=== PATIENT | female | born 1990 | race Asian ===

== ENCOUNTER 2019-09-03 14:20 | Emergency (ER) | payer BC ==
[~2019-09-03] VITALS: Ht 152.4 cm; Wt 68.0 kg
[2019-09-03] MEDS: ONDANSETRON PF 4 MG/2 ML VIAL. IVP ONE ×2 (15:54→17:30)
[2019-09-03] MEDS: FAMOTIDINE 20 MG/2 ML VIAL IVP ONE (15:54)
[2019-09-03] MEDS: IV NORMAL SALINE 1000ML BAG 1,000 ML IV ONE (15:56)
[2019-09-03 15:58] LABS: BASO % 0 % (0-3); EOS # 0.1 x10^3/uL (0.0-0.7); EOS % 1 % (0-3); HEMATOCRIT 38.6 % (36.0-47.0); HEMOGLOBIN 12.9 g/dL (12.0-15.5); LYMPH # 1.4 x10^3/uL (1.0-4.8); LYMPH % 9 % (24-48); MEAN CORPUSCULAR HEMOGLOBIN 29 pg (25-35); MEAN CORPUSCULAR HGB CONC 34 g/dL (31-37); MEAN CORPUSCULAR VOLUME 87 fL (79-100); MONO # 0.4 x10^3/uL (0.0-1.1); MONO % 3 % (0-9); NEUT # 12.6 x10^3/uL (1.8-7.7); NEUT % 87 % (31-73); PLATELET COUNT 207 x10^3/uL (140-400); RED BLOOD COUNT 4.45 x10^6/uL (3.50-5.40); RED CELL DISTRIBUTION WIDTH 12.2 % (11.5-14.5); WHITE BLOOD COUNT 14.5 x10^3/uL (4.0-11.0)
[2019-09-03 16:08] LABS: CALCIUM 8.5 mg/dL (8.5-10.1); CREATININE 0.5 mg/dL (0.6-1.0); POTASSIUM 3.5 mmol/L (3.5-5.1)
[2019-09-03 16:14] LABS: ALBUMIN 2.4 g/dL (3.4-5.0); ALBUMIN/GLOBULIN RATIO 0.5 (1.0-1.7); MAGNESIUM 1.8 mg/dL (1.8-2.4); TOTAL BILIRUBIN 0.5 mg/dL (0.2-1.0); TOTAL PROTEIN 6.8 g/dL (6.4-8.2)
[2019-09-03 16:34] LABS: % ATYL 3 % (0-0); % BANDS 11 % (0-9); % LYMPHS 5 % (24-48); % MONOS 3 % (0-10); % SEGS 78 % (35-66)
[2019-09-03 16:35] LABS: PLT ESTIMATE ADEQUATE (ADEQUATE)
[2019-09-03 17:04] LABS: BILIRUBIN,URINE NEGATIVE (NEG); CLARITY,URINE CLOUDY; COLOR,URINE AMBER; NITRITE,URINE NEGATIVE (NEG); PH,URINE 5.5; PROTEIN,URINE 30 mg/dL (NEG-TRACE)
[2019-09-03 17:10] LABS: BACTERIA,URINE FEW /HPF (0-FEW); RBC,URINE >40 /HPF (0-2); SQUAMOUS EPITHELIAL CELL,UR FEW /LPF; WBC,URINE >40 /HPF (0-4)
[2019-09-03 17:12] LABS: AMPHETAMINE/METHAMPHETAMINE NEG (NEG); BARBITURATES NEG (NEG); BENZODIAZEPINES NEG (NEG); CANNABINOIDS NEG (NEG); COCAINE NEG (NEG); METHADONE NEG (NEG); OPIATES NEG (NEG); PHENCYCLIDINE NEG (NEG)
--- NOTE | 2019-09-03 17:13 | RAD ---
CT abdomen pelvis without contrast dated 09/03/2019. No comparison available. Clinical data indication: Abdominal pain. Status post vaginal delivery on Sunday. TECHNIQUE: Contiguous axial imaging the M pelvis performed without the administration of IV or oral contrast. One or more of the following individualized dose reduction techniques were utilized for this examination: 1. Automated exposure control 2. Adjustment of the mA and/or kV according to patient size 3. Use of iterative reconstruction technique. FINDINGS: Limited images of lung bases are clear. Heart size is upper limits of normal. No pleural or pericardial effusion. Solid abdominal viscera not well evaluated in the absence of contrast material. No apparent attenuation abnormality of the liver or spleen. Pancreas, adrenal glands unremarkable. Gallbladder unremarkable. There is a 8 mm calcific stone at the mid to lower pole right kidney. No apparent ureteral stone or hydronephrosis. Unopacified GI tract is difficult to evaluate in the absence of contrast material. There appears to be circumferential wall thickening of small bowel loops distally in the abdomen and pelvis. There is also possible mild wall thickening of the ascending colon. Mild inflammatory stranding in the mesentery. No significant ascites or pneumoperitoneum. Abdominal aorta normal in caliber. There is a small ventral abdominal wall protrusion at the umbilicus which contains bowel. The appendix is not clearly identified. Images of pelvis show enlarged uterus. There is some hyperdensity within the endometrial canal. Trace amount of free pelvic fluid. No pelvic lymphadenopathy. The urinary bladder is collapsed and not well evaluated. Ovaries are not well evaluated. Bone windows show no acute findings. IMPRESSION: 1. Diffuse circumferential wall thickening of distal small bowel loops without evidence of obstruction. This is of uncertain etiology but could represent infectious or inflammatory enteritis. There is mild inflammatory stranding and fluid in the mesentery. 2. uterus. Hyperdense material within the endometrial canal could represent retained clot. If indicated, pelvic ultrasound better evaluate. 3. Right-sided nephrolithiasis, nonobstructive. Electronically signed by: Francisco J Dove MD (09/03/2019 5:10 PM) [id number]
--- NOTE | 2019-09-03 18:41 | RAD ---
STUDY: US PELVIS COMPLETE HISTORY: Recent vaginal delivery. Abdominal pain. Vomiting. COMPARISON: CT abdomen/pelvis also on 09/03/2019. TECHNIQUE: Pelvic ultrasound was performed with a transabdominal probe. FINDINGS: The uterus exhibits a configuration and is enlarged at 15.4 x 10.4 x 7.6 cm. The endometrium is measured at 1.2 cm in thickness. No abnormal vascularity along the endometrium. No debris is seen to distend the endometrial canal. The right ovary measures 4.2 x 2.9 x 2.1 cm. The left ovary measures 3.3 x 3.1 x 2.1 cm. Doppler flow is maintained to both ovaries. Mild/moderate volume free fluid seen at the right greater than left aspects of the pelvis. Fluid-filled bowel seen within the lower abdomen. IMPRESSION: 1. Expected appearance of the uterus without findings to suggest retained products of conception. 2. Unremarkable ovaries with normal vascularity. 3. Mild/moderate free pelvic fluid. Fluid-filled bowel loops noted at the lower abdomen which were better characterized on the same day CT. Electronically signed by: CARMEN KLINE MD (09/03/2019 6:39 PM) [id number]
[2019-09-03] MEDS ORDERED: CEPH500T PO (18:46)
[2019-09-03] MEDS ORDERED: ONDA4TAB12 PO (18:46)
--- NOTE | 2019-09-03 18:46 | PHYS DOC ---
Past Medical History Past Medical History: No Pertinent History Past Surgical History: No Surgical History Smoking Status: Never Smoker Alcohol Use: None Adult General Chief Complaint Chief Complaint: ABDOMINAL PAIN HPI HPI Patient is a 29 year old female with no significant medical history who presents to the ED today complaining of vomiting and diarrhea that began today. Patient reports having a normal vaginal delivery on Sunday which is 5 days ago. She reports she is currently having slight bleeding area reports mild upper abdominal pain. Denies any pelvic pain. Denies bleeding more than 1 feminine pad an hour. Denies any hematemesis or melena. Patient reports she is currently breast-feeding. Patient is Beninese speaking, interpretation is provided by Review of Systems Review of Systems Constitutional: Denies fever or chills [] Eyes: Denies change in visual acuity, redness, or eye pain [] HENT: Denies nasal congestion or sore throat [] Respiratory: Denies cough or shortness of breath [] Cardiovascular: No additional information not addressed in HPI [] GI: Reports abdominal pain, vomiting and diarrhea : Denies dysuria or hematuria [] Musculoskeletal: Denies back pain or joint pain [] Integument: Denies rash or skin lesions [] Neurologic: Denies headache, focal weakness or sensory changes [] All other systems were reviewed and found to be within normal limits, except as documented in this note. Current Medications Current Medications Current Medications Medications (Trade) Dose Ordered Sig/Yonis Start Time Stop Time Status Last Admin Dose Admin Ceftriaxone Sodium (Rocephin) 1 gm 1X ONCE 09/03/19 18:15 09/03/19 18:17 DC Famotidine (Pepcid Vial) 20 mg 1X ONCE 09/03/19 15:30 09/03/19 15:36 DC 09/03/19 15:54 20 MG Ondansetron HCl (Zofran) 4 mg 1X ONCE 09/03/19 17:30 09/03/19 17:31 DC 09/03/19 17:30 4 MG Prochlorperazine Edisylate (Compazine) 10 mg 1X ONCE 09/03/19 18:15 09/03/19 18:17 DC Sodium Chloride 1,000 ml @ 1,000 mls/hr 1X ONCE 09/03/19 15:30 09/03/19 16:29 DC 09/03/19 15:56 1,000 MLS/HR Allergies Allergies Allergies Coded Allergies Type Severity Reaction Last Updated Verified No Known Drug Allergies 09/03/19 No Physical Exam Physical Exam Constitutional: Well developed, well nourished, no acute distress, non-toxic appearance. [] HENT: Normocephalic, atraumatic, bilateral external ears normal, oropharynx moist, no oral exudates, nose normal. [] Eyes: PERRLA, EOMI, conjunctiva normal, no discharge. [] Neck: Normal range of motion, no tenderness, supple, no stridor. [] Cardiovascular:Heart rate regular rhythm, no murmur [] Lungs & Thorax: Bilateral breath sounds clear to auscultation [] Abdomen: Bowel sounds normal, soft, no tenderness, no masses, no pulsatile masses. [ Pelvic exam deferred per patient request Skin: Warm, dry, no erythema, no rash. [] Back: No tenderness, no CVA tenderness. [] Extremities: No tenderness, no cyanosis, no clubbing, ROM intact, no edema. [] Neurologic: Alert and oriented X 3, normal motor function, normal sensory function, no focal deficits noted. [] Psychologic: Affect normal, judgement normal, mood normal. [] Current Patient Data Vital Signs Vital Signs Date Time Temp Pulse Resp B/P (MAP) Pulse Ox O2 Delivery O2 Flow Rate FiO2 09/03/19 15:10 98.6 108 16 156/109 (125) 98 Room Air 98.6 Lab Values Laboratory Tests Test 09/03/19 15:49 09/03/19 16:57 White Blood Count 14.5 x10^3/uL (4.0-11.0) H Red Blood Count 4.45 x10^6/uL (3.50-5.40) Hemoglobin 12.9 g/dL (12.0-15.5) Hematocrit 38.6 % (36.0-47.0) Mean Corpuscular Volume 87 fL (79-100) Mean Corpuscular Hemoglobin 29 pg (25-35) Mean Corpuscular Hemoglobin Concent 34 g/dL (31-37) Red Cell Distribution Width 12.2 % (11.5-14.5) Platelet Count 207 x10^3/uL (140-400) Neutrophils (%) (Auto) 87 % (31-73) H Lymphocytes (%) (Auto) 9 % (24-48) L Monocytes (%) (Auto) 3 % (0-9) Eosinophils (%) (Auto) 1 % (0-3) Basophils (%) (Auto) 0 % (0-3) Neutrophils # (Auto) 12.6 x10^3/uL (1.8-7.7) H Lymphocytes # (Auto) 1.4 x10^3/uL (1.0-4.8) Monocytes # (Auto) 0.4 x10^3/uL (0.0-1.1) Eosinophils # (Auto) 0.1 x10^3/uL (0.0-0.7) Basophils # (Auto) 0.0 x10^3/uL (0.0-0.2) Segmented Neutrophils % 78 % (35-66) H Band Neutrophils % 11 % (0-9) H Lymphocytes % 5 % (24-48) L Atypical Lymphocytes % (Manual) 3 % (0-0) H Monocytes % 3 % (0-10) Platelet Estimate Adequate (ADEQUATE) Sodium Level 138 mmol/L (136-145) Potassium Level 3.5 mmol/L (3.5-5.1) Chloride Level 102 mmol/L (98-107) Carbon Dioxide Level 24 mmol/L (21-32) Anion Gap 12 (6-14) Blood Urea Nitrogen 10 mg/dL (7-20) Creatinine 0.5 mg/dL (0.6-1.0) L Estimated GFR (Cockcroft-Gault) 148.0 BUN/Creatinine Ratio 20 (6-20) Glucose Level 89 mg/dL (70-99) Calcium Level 8.5 mg/dL (8.5-10.1) Magnesium Level 1.8 mg/dL (1.8-2.4) Total Bilirubin 0.5 mg/dL (0.2-1.0) Aspartate Amino Transferase (AST) 33 U/L (15-37) Alanine Aminotransferase (ALT) 30 U/L (14-59) Alkaline Phosphatase 174 U/L (46-116) H Total Protein 6.8 g/dL (6.4-8.2) Albumin 2.4 g/dL (3.4-5.0) L Albumin/Globulin Ratio 0.5 (1.0-1.7) L Lipase 41 U/L (73-393) L Ethyl Alcohol Level < 10 mg/dL (0-10) Urine Collection Type Unknown Urine Color Daniella Urine Clarity Cloudy Urine pH 5.5 Urine Specific [place] 1.020 Urine Protein 30 mg/dL (NEG-TRACE) Urine Glucose (UA) Negative mg/dL (NEG) Urine Ketones (Stick) >=80 mg/dL (NEG) Urine Blood Large (NEG) Urine Nitrite Negative (NEG) Urine Bilirubin Negative (NEG) Urine Urobilinogen Dipstick 1.0 mg/dL (0.2 mg/dL) Urine Leukocyte Esterase Moderate (NEG) Urine RBC >40 /HPF (0-2) Urine WBC >40 /HPF (0-4) Urine Squamous Epithelial Cells Few /LPF Urine Bacteria Few /HPF (0-FEW) Urine Mucus Marked /LPF Urine Opiates Screen Neg (NEG) Urine Methadone Screen Neg (NEG) Urine Barbiturates Neg (NEG) Urine Phencyclidine Screen Neg (NEG) Urine Amphetamine/Methamphetamine Neg (NEG) Urine Benzodiazepines Screen Neg (NEG) Urine Cocaine Screen Neg (NEG) Urine Cannabinoids Screen Neg (NEG) Urine Ethyl Alcohol Neg (NEG) Laboratory Tests 09/03/19 15:49 Laboratory Tests 09/03/19 15:49 EKG EKG [] Radiology/Procedures Radiology/Procedures PROCEDURE: CT ABDOMEN PELVIS WO CONTRAST CT abdomen pelvis without contrast dated 09/03/2019. No comparison available. Clinical data indication: Abdominal pain. Status post vaginal delivery on Sunday. TECHNIQUE: Contiguous axial imaging the M pelvis performed without the administration of IV or oral contrast. One or more of the following individualized dose reduction techniques were utilized for this examination: 1. Automated exposure control 2. Adjustment of the mA and/or kV according to patient size 3. Use of iterative reconstruction technique. FINDINGS: Limited images of lung bases are clear. Heart size is upper limits of normal. No pleural or pericardial effusion. Solid abdominal viscera not well evaluated in the absence of contrast material. No apparent attenuation abnormality of the liver or spleen. Pancreas, adrenal glands unremarkable. Gallbladder unremarkable. There is a 8 mm calcific stone at the mid to lower pole right kidney. No apparent ureteral stone or hydronephrosis. Unopacified GI tract is difficult to evaluate in the absence of contrast material. There appears to be circumferential wall thickening of small bowel loops distally in the abdomen and pelvis. There is also possible mild wall thickening of the ascending colon. Mild inflammatory stranding in the mesentery. No significant ascites or pneumoperitoneum. Abdominal aorta normal in caliber. There is a small ventral abdominal wall protrusion at the umbilicus which contains bowel. The appendix is not clearly identified. Images of pelvis show enlarged uterus. There is some hyperdensity within the endometrial canal. Trace amount of free pelvic fluid. No pelvic lymphadenopathy. The urinary bladder is collapsed and not well evaluated. Ovaries are not well evaluated. Bone windows show no acute findings. IMPRESSION: 1. Diffuse circumferential wall thickening of distal small bowel loops without evidence of obstruction. This is of uncertain etiology but could represent infectious or inflammatory enteritis. There is mild inflammatory stranding and fluid in the mesentery. 2. uterus. Hyperdense material within the endometrial canal could represent retained clot. If indicated, pelvic ultrasound better evaluate. 3. Right-sided nephrolithiasis, nonobstructive. Electronically signed by: Francisco J Dove MD (09/03/2019 5:10 PM) [id number] DICTATED and SIGNED BY: FRANCISCO J DOVE MD DATE: 09/03/191709 PROCEDURE: PELVIS COMPLETE STUDY: US PELVIS COMPLETE HISTORY: Recent vaginal delivery. Abdominal pain. Vomiting. COMPARISON: CT abdomen/pelvis also on 09/03/2019. TECHNIQUE: Pelvic ultrasound was performed with a transabdominal probe. FINDINGS: The uterus exhibits a configuration and is enlarged at 15.4 x 10.4 x 7.6 cm. The endometrium is measured at 1.2 cm in thickness. No abnormal vascularity along the endometrium. No debris is seen to distend the endometrial canal. The right ovary measures 4.2 x 2.9 x 2.1 cm. The left ovary measures 3.3 x 3.1 x 2.1 cm. Doppler flow is maintained to both ovaries. Mild/moderate volume free fluid seen at the right greater than left aspects of the pelvis. Fluid-filled bowel seen within the lower abdomen. IMPRESSION: 1. Expected appearance of the uterus without findings to suggest retained products of conception. 2. Unremarkable ovaries with normal vascularity. 3. Mild/moderate free pelvic fluid. Fluid-filled bowel loops noted at the lower abdomen which were better characterized on the same day CT. Electronically signed by: CARMEN KLINE MD (09/03/2019 6:39 PM) [id number] DICTATED and SIGNED BY: CARMEN KLINE MD DATE: 09/03/19 1839 Course & Med Decision Making Course & Med Decision Making Pertinent Labs and Imaging studies reviewed. (See chart for details) This is a 29-year-old female patient presenting to the ED today complaining of upper abdominal pain, diarrhea and vomiting, symptoms began today. Patient had vaginal delivery 5 days ago and was discharged from the hospital 4 days ago. Patient has a CBC with a WBC of 14.5, she is also noted for a left shift with bandemia. CMP with no acute findings, stool was sent for culture and C. difficile. Urine analysis is noted for UTI. CT of the abdomen and pelvic is noted for possible enteritis. Also noted for possible retained clot in the uterus and right-sided nephrolithiasis nonobstructive. spoke with Dr. Anyi MARCELO-she requested we start patient on UTI medication and send her home with nausea medication. Patient follow-up with her own [facility] or Dr. De Santiago. She was given IV fluids in the ED as well as nausea medicine. Dragon Disclaimer Dragon Disclaimer This electronic medical record was generated, in whole or in part, using a voice recognition dictation system. Departure Departure Impression: Primary Impression: Enteritis Additional Impression: UTI (urinary tract infection) Disposition: 01 HOME, SELF-CARE Condition: STABLE Referrals: UNKNOWN PCP NAME (PCP) PIPER ORDONEZ MD Follow-up with your own [facility] on the provided [facility] in the course of this week or next week Patient Instructions: Urinary Tract Infection, Viral Gastroenteritis, [id number] Additional Instructions: You were evaluated in the emergency room for vomiting and diarrhea. You have urinary tract infection and possible enteritis. Take the prescribed medications as ordered. Follow-up with your own [facility] on the provided [facility] in the course of this week or next week. Push fluids. Maintain good hand hygiene. Scripts Ondansetron (ONDANSETRON ODT) 4 Mg Tab.rapdis 1 TAB PO PRN Q6-8HRS, #16 TAB Prov: MUTUNGA,OTIS GLASS INSERTER 09/03/19 Cephalexin (CEPHALEXIN) 500 Mg Tablet 1 TAB PO BID, #14 TAB Prov: MUTUNGA,OTIS GLASS INSERTER 09/03/19 Problem Qualifiers Additional Impression: UTI (urinary tract infection) Urinary tract infection type: site unspecified Hematuria presence: without hematuria Qualified Codes: N39.0 - Urinary tract infection, site not specified OTIS HOANG APRN Sep 03, 2019 18:46
[2019-09-03] MEDS: cefTRIAXone IV Push 1 GM VIAL. IVP ONE (18:54)
[2019-09-03] MEDS: PROCHLORPERAZINE 10 MG/2 ML VIAL. IV ONE (18:54)
[2019-09-03 19:00] VITALS: BP 134/64
== END 2019-09-03 19:32 | disposition home or self-care (01) ==
LOC: ER 14:20
DX: O99.63 Diseases of the digestive system complicating the puerperium (principal); K50.90 Crohn's disease, unspecified, without complications; N39.0 Urinary tract infection, site not specified; R11.10 Vomiting, unspecified; R19.7 Diarrhea, unspecified; R10.10 Upper abdominal pain, unspecified
CPT/HCPCS: 36415; 74176; 76856; 80053; 80307; 81001; 83690; 83735; 85007; 85025; 87045; 87086; 87493; 96361; 96374; 96375; 96376; 99285; G0480; J0696; J0780; J2405; J3490; J7030